=== PATIENT | male | born 1960 | race Caucasian/White ===

== ENCOUNTER → 2018-05-25 | Outpatient (CLI) | payer OTHER | LOC: FIMAGING 11:56 | PROVIDERS: ATTEND Orthopaedic Surgery | DX: Z01.818 Encounter for other preprocedural examination (principal); M17.11 Unilateral primary osteoarthritis, right knee; M85.48 Solitary bone cyst, other site; M71.21 Synovial cyst of popliteal space [Baker], right knee ==

== ENCOUNTER 2018-06-21 07:15 | Observation (INO) | payer OTHER ==
--- NOTE | 2018-06-21 06:09 | PDHPUP ---
History & Physical Update H&P update statement: This history and physical update is based on an assessment of the patient which was completed after admission or registration (within 24 hours), but prior to the surgery/procedure. H&P update: H&P reviewed & patient examined, no change in patient's condition since H&P completed
[~2018-06-21 07:15] MED LIST: ROPIVACAINE 0.2% 80 MG, EPINEPHrine 0.2 MG, KETOROLAC TROMETHAMINE 30 MG in SYRINGE 0 ML IU ONE; TRANEXAMIC ACID 3,000 MG in NS (SYRINGE) 50 ML IRR ONE
[2018-06-21] MEDS ORDERED: FAMOTIDINE 20 MG TAB PO ONE (10:51)
[2018-06-21] MEDS ORDERED: DEXAMETHASONE 4 MG/ML VIAL IVP ONE (10:51)
[2018-06-21] MEDS ORDERED: ACETAMINOPHEN 325 MG TAB PO ONE (10:51)
[2018-06-21] MEDS ORDERED: ceFAZolin 2 GM/DEXTROSE 100 ML IV ONE (10:51)
[2018-06-21] MEDS ORDERED: LIDOCAINE 1% 2 ML INJ ID PRN (10:52)
[2018-06-21] MEDS ORDERED: LR 1,000 ML IV ONE (10:52)
[2018-06-21] MEDS ORDERED: TRANEXAMIC ACID 3,000 MG/50 ML BAG IRR ONE (10:57)
[2018-06-21] MEDS ORDERED: PROPOFOL/EMULSION 500 MG/50 ML BOTTLE IV ONE ×2 (12:02→13:34)
[2018-06-21] MEDS ORDERED: MIDAZOLAM 2 MG/2 ML VIAL IVP ONE (12:18)
--- NOTE | 2018-06-21 12:19 | PDANEPAE ---
ANE History of Present Illness right knee pain ANE Past Medical History - Cardiovascular History Hx Hypertension: Yes Hx Arrhythmias: No Hx Chest Pain: No Hx Coronary Artery / Peripheral Vascular Disease: No Hx CHF / Valvular Disease: No Hx Palpitations: No Cardiovascular History Comment: OCCAS BENIGN SKIPPED BEAT - Pulmonary History Hx COPD: No Hx Asthma/Reactive Airway Disease: No Hx Recent Upper Respiratory Infection: No Hx Oxygen in Use at Home: No Hx Sleep Apnea: No Sleep Apnea Screening Result - Last Documented: Negative - Neurologic History Hx Cerebrovascular Accident: No Hx Seizures: No Hx Dementia: No - Endocrine History Hx Diabetes: No Hypothyroid: No Hyperthyroid: No Obesity: mild - Renal History Hx Renal Disorders: No - Liver History Hx Hepatic Disorders: No - Neurological & Psychiatric Hx Hx Neurological and Psychiatric Disorders: No - Cancer History Hx Cancer: No - Congenital Disorder History Hx Congenital Disorders: No - GI History GERD: no Hx Gastrointestinal Disorders: No - Other Health History Other Health History: NEG - Chronic Pain History Chronic Pain: Yes (R KNEE) - Surgical History Prior Surgeries: WISDOM TEETH ANE Review of Systems Review of systems is: negative Review of Systems: - Exercise capacity Exercise capacity: >=4 METS METS (RN): 5 METS ANE Patient History - Allergies Allergies/Adverse Reactions: No Known Drug Allergies Allergy (Verified 06/18/18 13:17) - Home Medications Home medications: home medication list seen and reviewed Home Medications: Aspirin EC [Aspirin EC 325 mg (*)] 325 mg PO DAILY 05/13/18 [Last Taken 05/31/18 ] Chlorthalidone [Chlorthalidone 25 mg (*)] 25 mg PO DAILY 05/13/18 [Last Taken ] Cholecalciferol Vit D3 [Vitamin D3 (*)] 2,000 units PO DAILY 05/13/18 [Last Taken 05/31/18] Losartan Potassium 100 mg PO DAILY 05/13/18 [Last Taken 06/20/18] [place]-3 Fatty Acids [Fish Oil 1000 mg (*)] 1,000 mg PO DAILY 05/13/18 [Last Taken 05/31/18] amLODIPine BESYLATE [Norvasc 5 mg (*)] 5 mg PO DAILY 05/13/18 [Last Taken ] - NPO status NPO Status: no food or drink >8 hours NPO Since - Liquids (Date): 06/20/18 NPO Since - Liquids (Time): 18:00 NPO Since - Solids (Date): 06/20/18 NPO Since - Solids (Time): 17:30 - Smoking Hx Smoking Status: Never smoked - Family Anes Hx Family Hx Anesthesia Complications: NONE KNOWN ANE Labs/Vital Signs - Vital Signs Blood Pressure: 154/81 Heart Rate: 65 Respiratory Rate: 20 O2 Sat (%): 95 Height: 177.8 cm Weight: 99.79 kg ANE Physical Exam - Airway Neck exam: FROM Mallampati Score: Class 2 - Pulmonary Pulmonary: no respiratory distress - Cardiovascular Cardiovascular: regular rate and rhythym - ASA Status ASA Status: II ANE Anesthesia Plan Anesthesia Plan: spinal Regional Anesthesia: single shot NB, adductor canal FNB
[2018-06-21] MEDS ORDERED: BUPIVACAINE/DEXTROSE 7.5MG/ML 2 ML SPINAL AMP SP ONE (13:27)
[2018-06-21] MEDS ORDERED: GLYCOPYRROLATE 0.2 MG/1 ML VIAL ONE (13:43)
[2018-06-21] MEDS ORDERED: LIDOCAINE 2% 5 ML SDV ONE (13:43)
[2018-06-21] MEDS ORDERED: ONDANSETRON 4 MG/2 ML VIAL IVP PRN ×2 (14:02→14:49)
[2018-06-21] MEDS ORDERED: DIAZEPAM 5 MG/ML 1 ML SYR IVP PRN (14:02)
[2018-06-21] MEDS ORDERED: ACETAMINOPHEN 500 MG TAB PO PRN (14:02)
[2018-06-21] MEDS ORDERED: PHENYLEPHRINE HCL 100 MCG/ML SYR IVP PRN (14:02)
[2018-06-21] MEDS ORDERED: METOCLOPRAMIDE 10 MG/2 ML VIAL IVP PRN ×2 (14:02→14:49)
[2018-06-21] MEDS ORDERED: NALOXONE HCL 0.4 MG/ML INJ IVP PRN (14:02)
[2018-06-21] MEDS ORDERED: fentaNYL 100 MCG/2 ML INJ IVP PRN (14:02)
[2018-06-21] MEDS ORDERED: LABETALOL HCL 20 MG/4 ML INJ IVP PRN (14:02)
[2018-06-21] MEDS ORDERED: DEXAMETHASONE 4 MG/ML VIAL IVP PRN (14:02)
[2018-06-21] MEDS ORDERED: MEPERIDINE 25 MG/0.5 ML AMP IVP PRN (14:02)
[2018-06-21] MEDS ORDERED: HYDROmorphONE/DILAUDID 2 MG/ML INJ IVP PRN (14:02)
[2018-06-21] MEDS ORDERED: oxyCODONE IR 5 MG TAB PO PRN ×2 (14:02→14:49)
[2018-06-21] MEDS ORDERED: ALBUTEROL 3 ML DEYVIAL IH PRN (14:02)
[2018-06-21] MEDS ORDERED: PROMETHAZINE HCL 25 MG/ML INJ IVP PRN ×2 (14:02→14:49)
[2018-06-21] MEDS ORDERED: LR 500 ML IV PRN (14:02)
[2018-06-21] MEDS ORDERED: ROPIVACAINE HCL 150 MG/30 ML INJ ONE (14:38)
--- NOTE | 2018-06-21 14:48 | POSTOPPROG ---
Post Op Note Date of Operation: 06/21/18 Surgeon: Shannan Coburn Kalsominer: Kelly Coburn PA-C Anesthesiologist: Angelia Anesthesia: Spinal, Other (Specify) (adductor canal block) Pre-op Diagnosis: R knee OA Post-op Diagnosis: same Indication: right knee pain Procedure: R TKA robot assisted, sensor assisted Findings: severe knee OA Inf/Abcess present in the surg proc area at time of surgery?: No EBL: 50-100
[2018-06-21] MEDS ORDERED: BISACODYL 10 MG SUPP PR PRN (14:49)
[2018-06-21] MEDS ORDERED: LACTULOSE 20 GM/30 ML UDCUP PO PRN (14:49)
[2018-06-21] MEDS ORDERED: PROMETHAZINE HCL 25 MG SUPPR PR PRN (14:49)
[2018-06-21] MEDS ORDERED: MAGNESIUM HYDROXIDE 30 ML UDCUP PO PRN (14:49)
[2018-06-21] MEDS ORDERED: POLYETHYLENE GLYCOL 3350 17 GM PKT PO PRN (14:49)
[2018-06-21] MEDS ORDERED: diphenhydrAMINE 25 MG CAP PO PRN (14:49)
[2018-06-21] MEDS ORDERED: TEMAZEPAM 15 MG CAP PO PRN (14:49)
[2018-06-21] MEDS ORDERED: ONDANSETRON DISINTEGRATING 4 MG TAB PO PRN (14:49)
[2018-06-21] MEDS ORDERED: CYCLOBENZAPRINE 10 MG TAB PO PRN (14:49)
[2018-06-21] MEDS ORDERED: DIPHENOXYLATE/ATROPINE LOMOTIL 1 TAB PO PRN (14:49)
[2018-06-21] MEDS ORDERED: LR 1,000 ML IV SCH (15:00)
[2018-06-21] MEDS: ACETAMINOPHEN 325 MG TAB PO SCH (18:11)
--- NOTE | 2018-06-21 18:12 | POSTANESTH ---
Post Anesthetic Evaluation Cardiovascular Status: Normal, Stable Respiratory Status: Normal, Stable Level of Consciousness/Mental Status: Can Participate in Eval Pain Control: Adequate, Prn Tx Ordered Nausea/Vomiting Control: Adequate, Prn Tx Ordered Complications Possibly Related to Anesthesia: None Noted
[2018-06-21] MEDS ORDERED: LOSARTAN POTASSIUM 50 MG TAB PO ONE (18:30)
[2018-06-21] MEDS ORDERED: amLODIPine BESYLATE 5 MG TAB PO ONE (18:30)
[2018-06-21] MEDS: SENNOSIDES/DOCUSATE SODIUM TAB PO SCH (20:42)
[2018-06-21] MEDS: FAMOTIDINE 20 MG TAB PO SCH (20:43)
[2018-06-21] MEDS: ASPIRIN 81 MG CHEWABLE TAB PO SCH (20:43)
[2018-06-21] MEDS: ceFAZolin 2 GM/DEXTROSE 100 ML IV SCH (20:46)
[2018-06-22] MEDS: ACETAMINOPHEN 325 MG TAB PO SCH ×2 (00:48→05:05)
[2018-06-22] MEDS: ceFAZolin 2 GM/DEXTROSE 100 ML IV SCH (05:04)
[2018-06-22 08:02] VITALS: BP 152/100
[2018-06-22] MEDS ORDERED: CHLORTHALIDONE 25 MG TAB PO SCH (09:00)
[2018-06-22] MEDS ORDERED: amLODIPine BESYLATE 5 MG TAB PO SCH (09:00)
[2018-06-22] MEDS ORDERED: LOSARTAN POTASSIUM 50 MG TAB PO SCH (09:00)
[2018-06-22] MEDS: SENNOSIDES/DOCUSATE SODIUM TAB PO SCH (09:17)
[2018-06-22] MEDS: FAMOTIDINE 20 MG TAB PO SCH (09:18)
[2018-06-22] MEDS: ASPIRIN 81 MG CHEWABLE TAB PO SCH (09:19)
--- NOTE | 2018-06-22 10:01 | SOAPPROG ---
SOAP Progress Note Assessment/Plan: Assessment: Patient is doing well POD 1 s/p R TKA Pain management: pain is well controlled on oral pain meds. VTE ppx: recommend aspirin 81 mg twice daily for 4 weeks, cont TRACY and SCDs D/c planning:patient has done much better than anticipated. Patient is stable, BP back to baseline, pain well controlled and patient is eager for discharge to home. May d/c to home today pending release from PT Plan: 06/22/18 10:00 06/22/18 10:01 Subjective: Patient is doing well, denies SOB ,chest pain and N/V Objective: Vital Signs Temp Pulse Resp BP Pulse Ox 36.9 C 75 16 152/100 H 94 06/22/18 08:00 06/22/18 08:00 06/22/18 08:00 06/22/18 09:19 06/22/18 08:00 Laboratory Results 06/22/18 04:40 06/21/18 06/22/18 06/23/18 05:59 05:59 05:59 Intake Total 2600 Output Total 2155 Balance 445 RLE: incision dressing is clean and dry, NVI, +pf/df ICD10 Worksheet Patient Problems: Problems Problem Status Onset Primary localized osteoarthritis of right knee Acute
--- NOTE | 2018-06-22 11:53 | GDS ---
ADMISSION DIAGNOSIS: Right knee osteoarthritis. DISCHARGE DIAGNOSIS: Right knee osteoarthritis. PROCEDURE: Right total knee arthroplasty, robotic assisted. VTE PROPHYLAXIS: Recommend aspirin 81 mg twice daily for 4 weeks. BRIEF DESCRIPTION OF HOSPITAL STAY: Patient was admitted for an elective joint arthroplasty. The pa marcelinont tolerated the procedure well and has passed physical therapy. The patient was given appropriat e antibiotic prophylaxis and venous thromboembolism prophylaxis. The patient's pain was well control led on oral pain medication, patient was holding down food, and had urinated. Decision was made to d ischarge the patient. The patient was given post-operative prescriptions pre-operatively. PLAN: Please follow up as scheduled in Dr. Coburn's office, 07/15 at 10:15 a.m. /[id number]/MODL
--- NOTE | 2018-06-24 09:54 | GOP ---
DATE OF OPERATION: 06/21/2018 SURGEON: Vamsi Coburn MD MANAGER OF MERCHANDISING: JOLYNN Zarate. ANESTHESIA: Spinal. PREOPERATIVE DIAGNOSIS: Right knee osteoarthritis. POSTOPERATIVE DIAGNOSIS: Right knee osteoarthritis. PROCEDURE PERFORMED: Right total knee arthroplasty with computer navigation, robotic assist. FINDINGS: SPECIMENS: Sent to Pathology severe medial and patellofemoral osteoarthritis. ESTIMATED BLOOD LOSS: 30 cc. INDICATIONS: The patient is a 58-year-old male with severe and progressive pain and deformity of the right knee unresponsive to conservative care. The risks and benefits of surgical intervention were explained in detail. DESCRIPTION OF PROCEDURE: The patient was brought to the operative room and placed on the table in the supine position. Spinal anesthesia was induced without difficulty. A pneumatic tourniquet was applied about the right proximal thigh, and the leg was prepped and draped in a sterile fashion. The leg manriquez was applied. After exsanguination by elevation the tourniquet was inflated to 250 mmHg. Incision was made anterior medial from the tibial tuberosity to a point __ cm proximal to the superior pole of the patella. Medial parapatellar arthrotomy was carried out from the superior pole of the patella and posteriorly in line with the fibers of the Type II VMO. The medial collateral ligament was elevated and the infrapatellar fat pad was resected. The patella was everted and the articular surface was excised. A 35 mm patellar button was placed. Attention was turned first to the distal aspect of the femur. After exposure of the femur, 2 half pins were placed for fixation of the femoral array. In a similar fashion, 2 pins were placed anteromedial on the tibia for fixation of the tibial array. External land marking and registration of the hip center was performed without difficulty. Internal femoral and tibial registration was carried out without difficulty and the femoral and tibial checkpoints were placed and verified for accuracy. Attention was turned to the femur. The foot print for the size 4 femoral component was cut with the saw using the [employer] robotic system and verified for accuracy against the CT based plan. In a similar fashion, the saw was used to cut the footprint for the size 5 tibial component using the [employer] system and verified for accuracy against the CT based plan. The tibial articular surface was excised without difficulty, followed by the intercondylar box cut. The knee was extended and the remnants of the medial and lateral meniscus were excised. The posterior capsule was injected with ropivacaine, epinephrine and Toradol. A size 5 tibial tray was positioned. Trial reduction was then carried out. There was excellent range of motion, alignment, and stability using the 5 x 11 mm polyethylene. All trials were then removed. The joint was thoroughly irrigated and carefully dried. The pressfit components were implanted. The permanent 5 x 11 mm polyethylene was placed without difficulty. The tourniquet was deflated and all bleeders were coagulated. The wound was thoroughly irrigated and closed using interrupted sutures of 2-0 Vicryl for the joint capsule. The subcu was closed with 3-0 Vicryl and the skin with 4-0 Monocryl. Dermabond and Steri-Strips were applied followed by a compressive dressing. The patient was then moved from the operating room to the recovery room in good condition, having tolerated the procedure well. /[id number]/MODL MTDD
== END 2018-06-22 11:42 | disposition home or self-care (01) ==
LOC: F3N 10:17
PROVIDERS: ADMIT Orthopaedic Surgery; ATTEND Orthopaedic Surgery
DX: M17.11 Unilateral primary osteoarthritis, right knee (principal); I10 Essential (primary) hypertension; Z79.82 Long term (current) use of aspirin
CPT/HCPCS: 27447; 73560; 97116; 97161; G0378; J0171; J0690; J1100; J1885; J2250; J2704; J2795